=== PATIENT | male | born 1970 | race Caucasian/White ===

== ENCOUNTER 2021-03-23 17:08 | Emergency (ER) | payer MEDICAID ==
[~2021-03-23] VITALS: Ht 177.8 cm; Wt 93.5 kg
--- NOTE | 2021-03-23 17:41 | NUR ---
PT AMBULATORY TO ROOM 31 W/ C/O RUQ ABD PAIN STARTED RECENTLY. PT STATES PAIN WORSE WHEN PT EATS "ABOUT ONE HOUR AFTER I EAT". PT STATES HE HAD A VIRTUAL CALL W/ MD AND WAS TOLD IT COULD BE HIS GALLBLADDER AND WAS TOLD TO COME TO ED. PT ALSO C/O NAUSEA NO EMESIS. PT STATES HE HAD TUMOR REMOVED FROM ABD 6 WEEKS AGO. PT RESTING ON GURNEY. NADN. MONITORS APPLIED. VSS. WARM BLANKET PROVIDED. CALL LIGHT IN REACH. ERP DR. LEZAMA AT BEDSIDE FOR EVAL.
[2021-03-23 18:31] LABS: ALANINE AMINOTRANSFERASE 32 U/L (12-78); ALBUMIN 3.3 g/dL (3.4-5.0); ANION GAP 7 mmol/L (5-15); CALCIUM 9.1 mg/dL (8.5-10.1); CHLORIDE 111 mmol/L (98-107); CREATININE 0.76 mg/dL (0.7-1.3)
[2021-03-23 18:33] LABS: ALKALINE PHOSPHATASE 116 U/L (45-117); BILIRUBIN,TOTAL 0.2 mg/dL (0.2-1.0); TOTAL PROTEIN 7.4 g/dL (6.4-8.2)
[2021-03-23 18:44] VITALS: BP 105/63
--- NOTE | 2021-03-23 18:44 | NUR ---
PT RESTING ON GURNEY. NADN. [place].
--- NOTE | 2021-03-23 18:58 | NUR ---
REPORT GIVEN TO ANOOP SANTOS.
[2021-03-23 19:23] LABS: BASOPHILS % (AUTO) 0 % (0-1); EOSINOPHILS % (AUTO) 6 % (1-7); LYMPHOCYTES % (AUTO) 30 % (22-44); MEAN CORPUSCULAR HEMOGLOBIN 26.1 pg (27.5-34.5); MEAN CORPUSCULAR HGB CONC 32.5 g/dL (33.2-36.2); MEAN PLATELET VOLUME 7.5 fL (7.4-10.4); MONOCYTES % (AUTO) 12 % (2-9); NEUTROPHILS % (AUTO) 52 % (42-75); PLATELET COUNT 427 x10^3/uL (130-400); RED BLOOD COUNT 3.03 x10^6/uL (4.38-5.82); RED CELL DISTRIBUTION WIDTH 17.3 % (9.4-14.8)
--- NOTE | 2021-03-23 19:40 | NUR ---
ULTRASOUND TO BEDSIDE TO DO ULTRASOUND.
== END 2021-03-23 20:55 | disposition home or self-care (01) ==
LOC: ED 17:38
DX: K82.4 Cholesterolosis of gallbladder (principal); R10.13 Epigastric pain; D53.9 Nutritional anemia, unspecified; R11.0 Nausea
CPT/HCPCS: 36415; 76700; 80053; 83690; 85025; 99284